=== PATIENT | male | born 1975 | race Caucasian/White ===

== ENCOUNTER 2017-05-27 17:10 | Inpatient (IN) | payer OTHER ==
[~2017-05-27] VITALS: Ht 198.1 cm; Wt 111.1 kg
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
[2017-05-27 20:58] LABS: ABSOLUTE BASOPHIL COUNT 0 /CUMM (0.0-0.2); ABSOLUTE EOSINOPHIL COUNT 0 /CUMM (0.0-0.7); ABSOLUTE GRANULOCYTE CT 14.1 /CUMM (1.4-6.5); ABSOLUTE LYMPH COUNT 0.8 /CUMM (1.2-3.4); ABSOLUTE MONOCYTE COUNT 0.7 /CUMM (0.10-0.60); BASOPHIL % 0 % (0.0-2.0); EOSINOPHIL % 0 % (0-5); HEMATOCRIT 42.4 % (42-52); MEAN CORPUSCULAR HGB 30.1 PG (27.0-31.0); MEAN CORPUSCULAR HGB CONC 32.9 G/DL (33.0-37.0); MEAN CORPUSCULAR VOLUME 91.5 FL (80.0-94.0); PLATELET COUNT 304 /CUMM (130-400); RBC DISTRIBUTION WIDTH 13.3 % (11.5-14.5); RED BLOOD CELL CT 4.63 /CUMM (4.70-6.10); WHITE BLOOD CELL COUNT 15.5 /CUMM (4.8-10.8)
--- NOTE | 2017-05-27 21:01 | Admission Core Measures ---
Acute Coronary Syndrome (CM) ACS Core Measures Acute Coronary Syndrome Diagnosis No Congestive Heart Failure (NEW) CHF Core Measures Congestive Heart Failure Diagnosis No Cerebrovascular Accident (NEW) CVA Core Measures CVA/TIA Diagnosis No Venous Thromboembolism VTE Core Tyler (View Protocol) VTE Risk Factors Age>40 No Mechanical VTE Prophylaxis d/t N/A MechProphylax Ordered No VTE Pharm Prophylaxis d/t NA PharmProphylax ordered Problem List As ranked by this Provider includes Assessment & Plan 1. Closed right hip fracture
[2017-05-27] MEDS ORDERED: HUMALOG100 UNIT/2 (21:10)
[2017-05-27] MEDS ORDERED: RAMIPRIL10 M1 PO (21:11)
[2017-05-27] MEDS ORDERED: SERTRALINE HCL50 MG PO (21:11)
[2017-05-27 21:18] LABS: PT 12.4 SEC (9.4-12.5); PTT 27 SEC (25-37)
[2017-05-27 21:21] LABS: GRANULOCYTE % 90.6 % (42.2-75.2)
[2017-05-27 23:27] VITALS: BP 130/74
--- NOTE | 2017-05-27 23:27 | Event Note ---
Event Note Event Note: blood sugar management per phone conversation wtih Dr Horton this evening: suspend percutaneus insulin pump Levemir 10u bid, to start now Novolog sliding scale as ordered D5 1/2 NS w/ 20 kcl@ 100ml/hr Fingerstick glucose q4 hr patient will be npo after midnight for OR @ 6am.
[2017-05-28 07:13] VITALS: BP 126/68
--- NOTE | 2017-05-28 08:50 | Patient Discharge Instructions ---
Discharge Instructions General Discharge Information You were seen/treated for: Right hip femoral neck fracture You had these procedures: ORIF Right hip fx with cannulated screws Watch for these problems: Increasing pain despite the use of pain medication Increasing redness, warmth, swelling of leg Drainage of any type from incision Fever greater than 101.5 Do not soak the wound: Yes No bath, but you may shower: Yes Other wound care: Keep wound clean and dry Special Instructions: Toe touch weight bear as tolerated Diet Continue normal diet: Yes Recommended Diet: Diabetic Activity Full Activity/No Limits: No Activity Self Limited: Yes Pounds, do NOT lift more than: 10 Acute Coronary Syndrome Inclusion Criteria At DC or during hospital stay patient has or had the following: ACS DIAGNOSIS No Discharge Core Measures Meds if any: Prescribed or Continued at Discharge Meds if any: NOT Prescribed or Continued at Discharge Congestive Heart Failure Inclusion Criteria At DC or during hospital stay patient has or had the following: CHF DIAGNOSIS No Discharge Core Measures Meds if any: Prescribed or Continued at Discharge Meds if any: NOT Prescribed or Continued at Discharge Cerebrovascular accident Inclusion Criteria At DC or during hospital stay patient has or had the following: CVA/TIA Diagnosis No Discharge Core Measures Meds if any: Prescribed or Continued at Discharge Meds if any: NOT Prescribed or Continued at Discharge Venous thromboembolism Inclusion Criteria VTE Diagnosis No VTE Type NONE VTE Confirmed by (Test) NONE Discharge Core Measures - Per Current guidelines, there needs to be overlap - treatment for the first 5 days of Warfarin therapy. - If discharged on Warfarin prior to 5 days of - overlap therapy, the patient will need to be - assessed for post discharge needs including - *Post discharge parental anticoagulation - *Warfarin and/or parental anticoagulation education - *Follow up date to check INR post discharge At least 5 days overlap therapy as Inpatient No Meds if any: Prescribed or Continued at Discharge Note: Overlap Therapy is Warfarin and Anticoagulant Meds if any: NOT Prescribed or Continued at Discharge
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
--- NOTE | 2017-05-28 09:24 | RADIOLOGY REPORT ---
EXAMINATION: XR HIP, RIGHT CLINICAL INFORMATION: Intraoperative right hip fracture repair. COMPARISON: Right hip x-ray dated 05/27/2017. TECHNIQUE: Intraoperative Fluoroscopic images of the right hip. FINDINGS: Multiple intraoperative fluoroscopic images are submitted. Orthopedic localization of the femoral neck is confirmed. FLUOROSCOPY TIME: 3 minutes and 48 seconds. NUMBER OF IMAGES: 181 images IMPRESSION: Intraoperative images, proximal right femur.
[2017-05-28 10:40] VITALS: BP 140/60
--- NOTE | 2017-05-28 11:27 | Cons- Endocrinology ---
General Information and HPI Consulting Request Date of Consult: 05/28/17 Requested By: surgical team Reason for Consult: uncontrolled diabetes type 1 Source of Information: patient, old records Exam Limitations: no limitations History of Present Illness: This 41-year-old male who has a history of type 1 diabetes mellitus is on an insulin pump. His total basal per 24 hours is 22 units. He came to the hospital last night because of a fracture of the right femur. We had to discontinue his insulin pump in preparation for surgery. I spoke with the surgical PA. He was placed on Levemir 10 units twice a day and NovoLog sliding scale every 4 hours. We ran D5 half-normal saline with 20 K at 100 cc/h while he was n.p.o. Sugar was 158 before the surgery. His diabetes has been complicated by some peripheral neuropathy but he denies retinopathy or kidney disease. The patient is now postop and states he feels as if he will be able to eat lunch. He has some pain in his right hip area. He is alert and awake. Allergies/Medications Allergies: Coded Allergies: No Known Allergies (05/27/17) Home Med List: Insulin Lispro (Humalog) 100 UNIT/ML VIAL DM (Reported) Ramipril 10 MG CAPSULE 1 CAP PO DAILY HTN (Reported) Sertraline HCl 50 MG TABLET 1 TAB PO DAILY DEPRESSION (Reported) Review of Systems Review of Systems Constitutional: Denies: chills, fever. Cardiovascular: Denies: chest pain. Respiratory: Denies: cough, short of breath. Genitourinary: Denies: dysuria. Neurological/Psychological: Reports: no symptoms. 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 Surgical History Surgical History: 1 (none) Psychosocial History Smoking Status: Never Smoked Exam & Diagnostic Data Last 24 Hrs of Vital Signs/I&O Vital Signs Date Time Temp Pulse Resp B/P B/P Pulse O2 O2 Flow FiO2 Mean Ox Delivery Rate 05/28 1040 98.9 87 20 140/60 96 Room Air 05/28 0713 98.9 72 20 126/68 97 Room Air 05/27 2327 99.2 77 20 130/74 97 Room Air 05/27 2226 99.9 79 17 140/65 99 Room Air 05/27 2050 97 Room Air 05/27 2046 97.8 87 20 137/69 100 05/27 1728 98.2 05/27 1720 98.2 79 18 117/67 98 Room Air Intake & Output 05/28 1600 05/28 0800 05/28 0000 Intake Total 800 Output Total 800 Balance 0 Intake, IV 800 Output, Urine 800 Patient 245 lb Weight Weight Reported by Patient Measurement Method Vital Signs Date Time Temp Pulse Resp B/P B/P Pulse O2 O2 Flow FiO2 Mean Ox Delivery Rate 05/28 1040 98.9 87 20 140/60 96 Room Air 05/28 07 98.9 72 20 126/68 97 Room Air 05/27 2326 99.2 77 20 130/74 97 Room Air 05/27 2226 99.9 79 17 140/65 99 Room Air 05/27 2050 97 Room Air 05/27 2046 97.8 87 20 137/69 100 05/27 1728 98.2 05/27 1720 98.2 79 18 117/67 98 Room Air Intake & Output 05/28 1600 05/28 0800 05/28 0000 Intake Total 800 Output Total 800 Balance 0 Intake, IV 800 Output, Urine 800 Patient 245 lb Weight Weight Reported by Patient Measurement Method Physical Exam General Appearance: alert, awake, comfortable Head: normal appearance Eyes: Bilateral: normal appearance. Respiratory: normal breath sounds Cardiovascular: regular rate/rhythm Gastrointestinal: normal bowel sounds Extremities: deformity right hip Assessment/Plan Assessment/Plan This patient has a history of type 1 diabetes since age 3. He was on an insulin pump. We have discontinued the insulin pump and we will place him on subcutaneous insulin. At this point I suggest continuing Levemir 10 units twice a day. We can order a diabetic diet, consistent carbohydrate 1 for the patient. We can change his sliding scale NovoLog to before meals with a separate sliding scale at bedtime. Sliding scale NovoLog before meals should be 80-150 give 4 units NovoLog, 151-200 give 6 units NovoLog, 201-250 give 7 units NovoLog, 251- 300 give 8 units NovoLog, 301-350 give 9 units NovoLog, 3 5104 100 give 10 units NovoLog. A separate sliding scale NovoLog should be written. Sliding scale NovoLog at bedtime should be less than 250 give no insulin to 251-300 give 2 units NovoLog, 301-350 give 3 units NovoLog, 351-400 give 4 units NovoLog. We can reduce the patient's rate of IV fluids to 50 cc/h and if he eats well we can discontinue the IV fluids later today. Consult Acknowledgment - Thank you for your consult request.
[2017-05-28 13:55] VITALS: BP 140/60
--- NOTE | 2017-05-28 14:54 | PN- Orthopedic ---
Subjective Subjective: post-op check Pt laying in bed, pain controlled with medication. denies any nuw numbness or tingling, says he does have some neuropathy from his diabetes. tolerated reg diet, no n/v. denies cp/sob Objective Vital Signs and I&Os Vital Signs Date Time Temp Pulse Resp B/P B/P Pulse O2 O2 Flow FiO2 Mean Ox Delivery Rate 05/28 1355 99.2 87 20 140/60 97 Room Air 05/28 1040 98.9 87 20 140/60 96 Room Air 05/28 0713 98.9 72 20 126/68 97 Room Air 05/27 2327 99.2 77 20 130/74 97 Room Air 05/27 2227 99.9 79 17 140/65 99 Room Air 05/27 2051 97 Room Air 05/27 204 97.8 87 20 137/69 100 05/27 1728 98.2 05/27 1720 98.2 79 18 117/67 98 Room Air Intake & Output 05/28 1600 05/28 0800 05/28 0000 05/27 1600 05/27 0800 05/27 0000 Intake Total 800 Output Total 1100 800 Balance -1100 0 Intake, IV 800 Output, Urine 1100 800 Patient 245 lb Weight Weight Reported by Patient Measurement Method Physical Exam: gen-nad resp-clear abd-nd ext- right hip with clean and dry dressing, hip is soft, no ecchymosis. distal sensory and motor function intact Assessment/Plan Assessment/Plan 41yo M SP Closed reduction and percutaneous pinning of right femoral neck fracture POD0 Physical therapy- TTWB pain management dvt ppx- lovenox reg diet regular home meds- dr tomas made rec for management of diabetes Will dc IVF tonight Core Measures Venous Thromboembolism VTE Risk Factors Age>40 No Mechanical VTE Prophylaxis d/t N/A MechProphylax Ordered No VTE Pharm Prophylaxis d/t NA PharmProphylax ordered
[2017-05-28 22:21] VITALS: BP 142/66
[2017-05-29 06:59] VITALS: BP 134/58
--- NOTE | 2017-05-29 07:42 | PN- Diabetes ---
Assessment/Plan Diabetes Assessment: The patient feels better today. He was somewhat dizzy yesterday. He is eating okay. He is presently on Levemir 10 units twice a day and sliding scale NovoLog. His IV fluids have been stopped. Plan: Suggest continue the present insulin regimen. If the patient goes home today he can go back on his insulin pump as soon as he gets home. I have discussed with him running a temporary basal because he will have some Levemir on board. We should begin vitamin D 1000 units daily to help with the healing of his fracture. Subjective Subjective: Feels improved Review of Systems Constitutional: Denies: chills, fever. Cardiovascular: Denies: chest pain. Respiratory: Denies: cough, short of breath. Gastrointestinal: Denies: abdominal pain. Skin: Reports: no symptoms. Objective Last 24 Hrs of Vital Signs/I&O Vital Signs Date Time Temp Pulse Resp B/P B/P Pulse O2 O2 Flow FiO2 Mean Ox Delivery Rate 05/29 0659 99.4 83 20 134/58 96 Room Air 05/28 222 99.6 80 18 142/66 94 Room Air 05/28 1355 99.2 87 20 140/60 97 Room Air 05/28 1040 98.9 87 20 140/60 96 Room Air Intake & Output 05/29 0800 05/29 0000 05/28 1600 Intake Total 1000 320 Output Total 350 1700 1300 Balance -350 -700 -980 Intake, IV 200 200 Intake, Oral 800 120 Output, Urine 350 1700 1300 Patient 245 lb Weight Weight Reported by Patient Measurement Method Vital Signs Date Time Temp Pulse Resp B/P B/P Pulse O2 O2 Flow FiO2 Mean Ox Delivery Rate 05/29 0559 99.4 83 20 134/58 96 Room Air 05/28 2221 99.6 80 18 142/66 94 Room Air 05/28 1355 99.2 87 20 140/60 97 Room Air 05/28 1040 98.9 87 20 140/60 96 Room Air Intake & Output 05/29 0805/29 0000 05/28 1600 Intake Total 1000 320 Output Total 350 1700 1300 Balance -350 -700 -980 Intake, IV 200 200 Intake, Oral 800 120 Output, Urine 350 1700 1300 Patient 245 lb Weight Weight Reported by Patient Measurement Method Physical Exam General Appearance: alert, awake, comfortable Neck: normal inspection Respiratory: normal breath sounds Cardiovascular: regular rate/rhythm Abdomen: normal bowel sounds Extremities: normal inspection Current Medications: Current Medications Sig/Dariana Start time Last Medication Dose Route Stop Time Status Admin Acetaminophen 1,000 MG Q6P PRN 05/28 0845 AC N/A 1 UNIT IV Acetaminophen 1,000 MG Q6P PRN 05/28 0130 DC 05/28 N/A 1 UNIT IV 0258 Cefazolin Sodium 2 GM IQ8 05/28 1400 DC 05/29 N/A 1 UNIT IV 05/29 0029 0007 Enoxaparin Sodium 40 MG DAILY 05/28 1000 AC 05/28 SC 1238 Heparin Sodium 5,000 UNIT Q8 05/28 0600 DC (Porcine) SC Hydromorphone HCl 2 MG .STK-MED ONE 05/28 0950 DC IM 05/28 0951 Hydromorphone HCl 2 MG .STK-MED ONE 05/28 0950 DC IM 05/28 0951 Insulin Aspart 0 TIDAC 05/29 0800 CAN SC Insulin Aspart 0 AC 05/29 0700 AC 05/29 SC 0508 Insulin Aspart 0 QPM 05/28 2200 AC SC Insulin Aspart 0 AC 05/28 1200 DC 05/28 SC 1655 Insulin Aspart 0 Q4 05/28 1000 DC SC Insulin Aspart 0 Q4 05/27 2230 DC 05/28 SC 0144 Insulin Detemir 10 UNITS BID 05/28 1000 AC 05/28 SC 2114 Insulin Detemir 10 UNITS BID 05/27 2230 DC 05/27 SC 2239 Lisinopril 10 MG DAILY 05/28 1000 CAN PO Morphine Sulfate 2 MG Q2P PRN 05/28 0845 DC 05/29 IV 05/29 0700 0507 Morphine Sulfate 4 MG Q4-PRN PRN 05/27 2230 DC 05/27 IV 2229 Ondansetron HCl 4 MG .STK-MED ONE 05/28 1258 DC IV 05/28 1259 Ondansetron HCl 4 MG Q8P PRN 05/28 0845 AC IV Ondansetron HCl 4 MG Q8P PRN 05/27 2215 DC IV Oxycodone HCl 5 MG Q4P PRN 05/28 0845 AC PO Oxycodone HCl 10 MG Q4P PRN 05/28 0845 AC 05/29 PO 0240 Potassium Chloride 20 MEQ Q10H 05/28 0845 DC 02/22 Dextrose/Sodium 1,000 ML IV 1057 Chloride Potassium Chloride 20 MEQ Q10H 05/27 2226 DC 05/27 Dextrose/Sodium 1,000 ML IV 2301 Chloride Sertraline HCl 50 MG DAILY 05/28 1000 CAN PO
--- NOTE | 2017-05-29 08:11 | PN- Orthopedic ---
See Addendum Subjective Subjective: No acute overnight events reported. States that he feels better than yesterday, feels that pain medication is more effective today as well. Denies chest pain, shortness of breath and difficulty breathing. Denies nausea and vomitting. Tolerating diet. Is eager to ambulate with PT today, anticapates discharge to home today. Objective Vital Signs and I&Os Vital Signs Date Time Temp Pulse Resp B/P B/P Pulse O2 O2 Flow FiO2 Mean Ox Delivery Rate 05/29 0659 99.4 83 20 134/58 96 Room Air 05/28 2221 99.6 80 18 142/66 94 Room Air 05/28 1355 99.2 87 20 140/60 97 Room Air 05/28 1040 98.9 87 20 140/60 96 Room Air Intake & Output 05/29 1600 05/29 0800 05/29 0000 05/28 1600 05/28 0800 05/28 0000 Intake Total 1000 320 800 Output Total 350 1700 1300 800 Balance -350 -700 -980 0 Intake, IV 200 200 800 Intake, Oral 800 120 Output, Urine 350 1700 1300 800 Patient 245 lb 245 lb Weight Weight Reported by Patient Reported by Patient Measurement Method Physical Exam: General: Alert and oriented x3, no acute distress Cardiac: RRR, s1s2 Pulm: CTA bilaterally, non-labored respiratory effort Abdomen: Non-tender, non-distended Extremties: Moves all extremities, distal sensation itnact. Skin warm and well perfused. Distal pulses palpable. Bilateral calves soft and non-tender. Dressing dry and intact. Thigh compartment with swelling but compressible. Assessment/Plan Assessment/Plan This is a 41 year old male, POD 1, s/p ORIF R femoral neck fx with cannulated screw placement. PMH significant for DM, insulin dependent. -OOB, ttwb -Levimir bid, reg insulin sliding scale -Continue cc3 diet -Lovenox daily for dvt ppx -PT eval for dispo planning -DC morphine due to itching. PO pain control today Likely home today with [facility] Core Measures Venous Thromboembolism VTE Risk Factors Age>40 No Mechanical VTE Prophylaxis d/t N/A MechProphylax Ordered No VTE Pharm Prophylaxis d/t NA PharmProphylax ordered
[2017-05-29 14:09] VITALS: BP 138/80
[2017-05-29 14:48] LABS: ABSOLUTE BASOPHIL COUNT 0.1 /CUMM (0.0-0.2); ABSOLUTE EOSINOPHIL COUNT 0.2 /CUMM (0.0-0.7); ABSOLUTE GRANULOCYTE CT 6.9 /CUMM (1.4-6.5); ABSOLUTE LYMPH COUNT 1.9 /CUMM (1.2-3.4); ABSOLUTE MONOCYTE COUNT 0.9 /CUMM (0.10-0.60); BASOPHIL % 0.9 % (0.0-2.0); EOSINOPHIL % 1.5 % (0-5); GRANULOCYTE % 69.5 % (42.2-75.2); MEAN CORPUSCULAR HGB 31.3 PG (27.0-31.0); PLATELET COUNT 272 /CUMM (130-400); RBC DISTRIBUTION WIDTH 13.1 % (11.5-14.5); RED BLOOD CELL CT 4.34 /CUMM (4.70-6.10); WHITE BLOOD CELL COUNT 9.9 /CUMM (4.8-10.8)
[2017-05-29 22:18] VITALS: BP 138/72
[2017-05-30 06:58] VITALS: BP 126/74
[2017-05-30] MEDS ORDERED: LOVENOX40 MG/0.1 SC (07:35)
[2017-05-30] MEDS ORDERED: OXYCODONE HCL5 M1 PO (07:36)
[2017-05-30] MEDS ORDERED: SENOKOT-S TABL1 EACH PO (07:37)
--- NOTE | 2017-05-30 08:00 | PN- Orthopedic ---
Subjective Subjective: No acute overnight events reported. Again, patient reports he feels better than yesterday and states he feels like he can be discharged today. Continues to have pain in right hip, but has been oob. Denies chest pain, shortness of breath and difficulty breathing. Denies nausea and vomitting. Tolerating diet. Is eager to ambulate with PT today. Objective Vital Signs and I&Os Vital Signs Date Time Temp Pulse Resp B/P B/P Pulse O2 O2 Flow FiO2 Mean Ox Delivery Rate 05/30 0658 98.5 72 16 126/74 97 Room Air 05/29 2218 97.9 80 18 138/72 95 Room Air 05/29 1409 97.8 88 20 138/80 99 Room Air Intake & Output 05/30 1600 05/30 0800 05/30 0000 05/29 1600 05/29 0800 05/29 0000 Intake Total 240 260 985 493 4482 Output Total 950 1650 610 090 9502 Balance -710 -1390 200 -220 -700 Intake, IV 200 Intake, Oral 240 260 800 480 800 Number 0 Bowel Movements Output, Urine 950 1650 555 124 8974 Physical Exam: General: Alert and oriented x3, no acute distress Cardiac: RRR, s1s2 Pulm: CTA bilaterally, non-labored respiratory effort Abdomen: Non-tender, non-distended Extremties: Moves all extremities, distal sensation itnact. Skin warm and well perfused. Distal pulses palpable. Dressing dry and intact. Thigh compartment with swelling but compressible. Current Medications: Current Medications Sig/Dariana Start time Last Medication Dose Route Stop Time Status Admin Acetaminophen 1,000 MG .STK-MED ONE 05/29 1434 DC IV 05/29 1435 Acetaminophen 1,000 MG .STK-MED ONE 05/29 1434 DC IV 05/29 1435 Acetaminophen 1,000 MG Q6P PRN 05/28 0845 05/29 N/A 1 UNIT IV 143 Diphenhydramine HCl 25 MG ONCE ONE 05/29 2014 DC 05/29 IV 05/29 Diphenhydramine HCl 50 MG .STK-MED ONE 05/29 0941 DC IV 05/29 0942 Diphenhydramine HCl 25 MG ONCE ONE 05/29 0815 DC 05/29 IV 05/29 0816 0835 Enoxaparin Sodium 40 MG DAILY 05/28 1000 05/29 IN 0938 Insulin Aspart 0 AC 05/29 0700 AC 05/30 IN 0722 Insulin Aspart 0 QPM 05/28 2200 AC SC Insulin Detemir 10 UNITS BID 05/28 1000 05/29 IN 2142 Ondansetron HCl 4 MG Q8P PRN 05/28 0845 AC IV Oxycodone HCl 5 MG Q4P PRN 05/28 0845 AC PO Oxycodone HCl 10 MG Q4P PRN 05/28 0845 AC 05/30 PO 0623 Patient Medication 1 ED ONE ONE 05/29 1645 DC 05/29 Teaching ED 05/29 1646 1729 Results Last 48 Hours of Labs: Laboratory Tests 05/29 1432 Chemistry Sodium (137 - 145 mmol/L) 135 L Potassium (3.5 - 5.1 mmol/L) 3.7 Chloride (98 - 107 mmol/L) 96 L Carbon Dioxide (22 - 30 mmol/L) 26 Anion Gap (5 - 16) 13 BUN (9 - 20 mg/dL) 10 Creatinine (0.7 - 1.2 mg/dL) 0.7 Estimated GFR (>60 ml/min) > 60 BUN/Creatinine Ratio (7 - 25 %) 14.3 Hematology CBC w Diff NO MAN DIFF REQ WBC (4.8 - 10.8 /CUMM) 9.9 RBC (4.70 - 6.10 /CUMM) 4.34 L Hgb (14.0 - 18.0 G/DL) 13.6 L Hct (42 - 52 %) 40.0 L MCV (80.0 - 94.0 FL) 92.0 MCH (27.0 - 31.0 PG) 31.3 H MCHC (33.0 - 37.0 G/DL) 34.0 RDW (11.5 - 14.5 %) 13.1 Plt Count (130 - 400 /CUMM) 272 MPV (7.4 - 10.4 FL) 8.0 Gran % (42.2 - 75.2 %) 69.5 Lymphocytes % (20.5 - 51.1 %) 19.4 L Monocytes % (1.7 - 9.3 %) 8.7 Eosinophils % (0 - 5 %) 1.5 Basophils % (0.0 - 2.0 %) 0.9 Absolute Granulocytes (1.4 - 6.5 /CUMM) 6.9 H Absolute Lymphocytes (1.2 - 3.4 /CUMM) 1.9 Absolute Monocytes (0.10 - 0.60 /CUMM) 0.9 H Absolute Eosinophils (0.0 - 0.7 /CUMM) 0.2 Absolute Basophils (0.0 - 0.2 /CUMM) 0.1 Assessment/Plan Assessment/Plan This is a 41 year old male, POD 2, s/p ORIF R femoral neck fx with cannulated screw placement. PMH significant for DM, insulin dependent. -OOB, ttwb -Levimir bid, reg insulin sliding scale. Dr. Horton (endo) consulted and gave recommendations for dc -Continue cc3 diet -Lovenox daily for dvt ppx - 6 weeks - PO pain control today home today with hss Core Measures Venous Thromboembolism VTE Risk Factors Age>40 No Mechanical VTE Prophylaxis d/t N/A MechProphylax Ordered No VTE Pharm Prophylaxis d/t NA PharmProphylax ordered
--- NOTE | 2017-05-30 13:24 | PN- Diabetes ---
Assessment/Plan Diabetes Assessment: The patient feels better today. He is eating okay. He is presently on Levemir 10 units twice a day and sliding scale NovoLog. His FSGs were 198, 161, 231, 169, 175, 221. Most likely he will go home today. If the patient goes home today, he can go back on his insulin pump as soon as he gets home. I have discussed with him running a temporary basal because he will have some Levemir on board. Plan: detail see above. Subjective Subjective: He feels better. Objective Last 24 Hrs of Vital Signs/I&O Vital Signs Date Time Temp Pulse Resp B/P B/P Pulse O2 O2 Flow FiO2 Mean Ox Delivery Rate 05/30 0658 98.5 72 16 126/74 97 Room Air 05/29 2218 97.9 80 18 138/72 95 Room Air 05/29 1409 97.8 88 20 138/80 99 Room Air Intake & Output 05/30 1600 05/30 0800 05/30 0000 Intake Total 240 260 Output Total 950 1650 Balance -710 -1390 Intake, Oral 240 260 Number 0 Bowel Movements Output, Urine 950 1650
== END 2017-05-30 12:53 | disposition home health service (06) | DRG 482 ==
LOC: ERH 17:10 → 2NA 21:07 → ERHI 21:07 → ENRESERV 22:07 → 2NA 23:01 → ENTRNSPT 05-28 10:11 → EDTRNSPTSTS 05-28 10:30 → EDTRNSPT 05-28 10:30 → CMPTRNSPT 05-28 10:34 → 2NA 05-28 14:15 → ENPENDDIS 05-30 09:26 → ENTRNSPT 05-30 12:17 → 2NA 05-30 12:53 → EDTRNSPTSTS 05-30 12:54 → CMPTRNSPT 05-30 13:07
PROVIDERS: Nurse Practitioner; Physician Assistant Medical
PROC: 0QS604Z Reposition Right Upper Femur with Internal Fixation Device, Open Approach (ICD-10-PCS; principal; 2017-05-28)
DX: S72.001A Fracture of unspecified part of neck of right femur, initial encounter for closed fracture (principal); E10.65 Type 1 diabetes mellitus with hyperglycemia; F32.9 Major depressive disorder, single episode, unspecified; I10 Essential (primary) hypertension; Z79.4 Long term (current) use of insulin; Z96.41 Presence of insulin pump (external) (internal); V86.99XA Unspecified occupant of other special all-terrain or other off-road motor vehicle injured in nontraffic accident, initial encounter; Y92.838 Other recreation area as the place of occurrence of the external cause
CPT/HCPCS: 2NASP; 36415; 36592; 73502-RT; 74176; 82436; 93005; 93010; 97110-GO; 97116-GO; 97161-GP; C1713; J0131; J0690; J1200; J1644; J1650; J2405; J7042